=== PATIENT | female | born 1950 | race Caucasian/White ===

== ENCOUNTER 2018-03-10 05:36 | Inpatient (IN) | payer OTHER ==
[2018-02-24 11:41] LABS: URINE BILIRUBIN NEGATIVE (Negative); URINE BLOOD TRACE (Negative); URINE CLARITY CLEAR; URINE COLOR YELLOW; URINE GLUCOSE-RANDOM* NEGATIVE (Negative); URINE KETONES NEGATIVE (Negative); URINE NITRITE-REFLEX NEGATIVE (Negative); URINE PROTEIN (DIPSTICK) NEGATIVE (Negative); URINE UROBILINOGEN 0.2 E.U./dl (0.2-1.0)
[2018-02-24 11:42] LABS: HEMATOCRIT 44.1 % (37.0-47.0); HEMOGLOBIN 14.8 gm/dL (12.0-15.0); MCH 30.5 pg (26.0-34.0); MCHC 33.5 g/dL (28.0-37.0); RBC 4.85 mil/uL (4.20-5.00); RDW 12.9 % (10.5-14.5); WBC 5.4 thou/uL (4.0-11.0)
[2018-02-24 11:43] LABS: URINE LEUKOCYTES-REFLEX 1+ (Negative)
[2018-02-24 12:04] LABS: PROTIME 10.2 Seconds (9.3-11.4)
[2018-02-24 12:05] LABS: SQUAMOUS >10 Many /LPF (0-3)
[2018-02-24 12:06] LABS: CASTS None Seen /LPF (None Seen); CRYSTALS None Seen /LPF (None Seen); URINE RBC 0-2 Rare /HPF (0-2); URINE WBC-REFLEX 6-15 Few /HPF (0-5)
[2018-02-24 12:07] LABS: BACTERIA-REFLEX 1-9 Few /HPF (None Seen)
[2018-02-24 12:09] LABS: ALBUMIN 4.2 g/dL (3.4-5.0); CALCIUM 10.1 mg/dL (8.5-10.1); CREATININE 0.7 mg/dL (0.6-1.0); POTASSIUM 4.3 mmol/L (3.5-5.1)
[~2018-03-10] VITALS: Ht 167.6 cm; Wt 68.0 kg
--- NOTE | ~2018-03-10 | EKG ---
[address] [place] [address] ELECTROCARDIOGRAM REPORT Name: GLEN MITCHELL Room #: [facility]#: [id number] Admission: Attend Phys: Delbert Herman MD Discharge: Date of : 52 Report #: [id number] THIS REPORT FOR: //name// [facility] Test Date: 2018-02-24 Test Time: 11:38:08 Pat Name: GLEN MITCHELL Department: Room: Gender: F Liquefier: David DIAS : 1950 Requested By: Delbert Herman Order Number: [id number] MD: Prem Johnston Measurements Intervals [place] Rate: 67 P: 66 [place]: 155 QRS: 1 QRSD: 101 T: 46 QT: 395 QTc: 417 Interpretive Statements Sinus rhythm Multiple ventricular premature complexes No previous ECG available for comparison Electronically Signed On 02-25-2018 8:49:27 CDT by Prem Johnston [email or web address] <ELECTRONICALLY SIGNED> By: Prem Johnston MD, [facility] 02/25/18 0849 1138 1138 Prem Johnston MD, FACC /EPI
--- NOTE | ~2018-03-10 | O ---
[facility] [place] [address] OPERATIVE REPORT Name: DAYNEDorisGLEN Room #: 416-P [facility] M.R.#: [id number] Admission: 03/10/18 Attend Phys: Delbert Herman MD Discharge: Date of : 52 Report #: [id number] THIS REPORT FOR: //name// CC: Jameel Herman DATE OF SERVICE: 03/10/2018 PREOPERATIVE DIAGNOSIS: Painful right total knee arthroplasty, possible loosening. POSTOPERATIVE DIAGNOSES: 1. Painful. right total knee arthroplasty. 2. Loosening of the femoral and tibial prostheses, right total knee arthroplasty. PROCEDURE: Revision right total knee arthroplasty of all three components. SURGEON: Delbert Herman MD. AREA DIRECTOR OF HOME HEALTH SALES: Carolina Juan PA-C. INDICATIONS FOR ASSISTANCE: Throughout the case, extensive retraction and manipulation of the knee was required. This was afforded to me by my enrichment assistant ANESTHESIA: LMA with an adductor canal block. IMPLANTS: Basilio and Nephew size 4 revision Legion Oxinium femoral component with a 4 mm offset superintendent pier and a 120 mm intramedullary stem for the femur. The tibia was a size 3 with a revision tibial plate with a 4 mm offset superintendent pier and 160 stem and a size 32 patella. TOURNIQUET TIME: 90 minutes. ESTIMATED BLOOD LOSS: 50 mL. COMPLICATIONS: None. SPECIMENS: Intraoperative culture as well as frozen section were sent. Frozen section came back as 0 white cells per high-powered field. CONDITION UPON LEAVING THE OPERATING ROOM: Stable. INDICATION FOR PROCEDURE: The patient is a 67-year-old female who is about a year and a half out from a right total knee arthroplasty. She has had continued moderate to severe pain in the knee and had a workup for infection, which was [facility] [address] [place] [address] OPERATIVE REPORT Name: GLEN MITCHELL Room #: 416-P [facility] ..#: [id number] Admission: 03/10/18 Attend Phys: Delbert Herman MD Discharge: Date of : 52 Report #: [id number]. She had a bone scan showing to have increased uptake along the tibial and femoral component. It was felt that her components were loose from the bone. After discussion with her and her , she elected for revision total knee arthroplasty. DESCRIPTION OF PROCEDURE: Risks, benefits, alternatives, complications were discussed in detail with the patient including but not limited to risk of anesthesia, risk of damage to nerves, arteries, blood vessels, risk for infection, bleeding, risk for continued knee pain and need for reoperation. Informed consent was obtained from the patient. Right knee was appropriately marked in the preoperative holding area. IV Ancef was given for preoperative antibiotics. Adductor canal block was placed by Anesthesia. She was brought to the operating room and placed in supine position on operating room table. LMA anesthesia was induced without complication. Tourniquet was placed on the right thigh. Right lower extremity was prepped and draped in normal sterile fashion. Timeout was performed properly identifying the patient and procedure as well as the instrumentation and implants. All in the operating room were in agreement. Right lower extremity was exsanguinated, tourniquet was inflated. Tourniquet time was 90 minutes. The previous scar was used, and this was opened with a 10 blade through the skin. Dissection was taken down the fascia, and deep flaps were developed medially and laterally. Fresh 10 blade was used to make a medial parapatellar arthrotomy, and cultures of the fluid were taken. This appeared to be normal appearing synovial fluid. Several samples of synovium were taken from the knee and sent to pathology for intraoperative frozen section, which came back as 0 white cells per high-powered field. The polyethylene liner was removed, and the medial and lateral gutters were reestablished. The femoral component was then undermined with a combination of flexible and rigid osteotomes. The femoral component was removed rather easily. All the cement stayed on the femoral component, with minimal cement on the bone suggesting that there was no mcgrath between the bone and the cement. Tibial component was then removed using combination of flexible and rigid osteotomes with retention of most of the cement on the tibial component, again suggesting minimal mcgrath between the bone and the cement. After this, the canals were sequentially reamed up to a size 13 on the tibia and a size 18 on the femur. A tibial cut was freshened up on the tibial side, and tibia was sized. The tibial trial component fit best with a 160 stem and a 4 mm offset superintendent pier. This was punched and left in place. The femur was then reamed and sized as a 4, with a 4 mm offset superintendent pier, and this was placed using 120 mm stem. After this, the trial femoral component was placed, and this was trialed with a sequential polyethylene up to a size 15, at which point I had good balance in flexion and extension both medially and laterally. Patella was then inspected, and the patellar component was slightly loose, and this was removed with an oscillating saw. A cleanup cut on the patella was made, and the size 32 patellar trial was placed. Knee was taken through range of motion, found to be stable, found to have good balance in flexion and extension both medially and laterally. Trial components were removed. Bony ends were thoroughly irrigated with normal [address] [address] OPERATIVE REPORT Name: GLEN MITCHELL Room #: 416-P [facility] M.R.#: [id number] Admission: 03/10/18 Attend Phys: Delbert Herman MD Discharge: Date of : 52 Report #: [id number] saline. The final implants were built on the back table and cemented in place using standard cementation techniques. While the cement cured, a periarticular injection consisting of morphine, ropivacaine, epinephrine and Toradol was placed around the knee joint tissues. After the cement cured, the tourniquet was deflated. Hemostasis was obtained with Bovie cautery. The knee was thoroughly irrigated. A final size 15 polyethylene was placed. A gram of vancomycin was placed deep in the knee joint. Fascia was closed with 0 Vicryl, skin was closed with 2-0 Vicryl OUMOU dressing was applied. The patient tolerated this procedure well and went to recovery room under care of Anesthesia postoperatively. <ELECTRONICALLY SIGNED> By: Delbert Herman MD 03/11/18 1232 1610 1707 Delbert Herman MD /nt
[~2018-03-10 05:36] MED LIST: MOBIC7.5 MG PO
[2018-03-10 09:45] VITALS: BP 129/75
[2018-03-10 20:00] VITALS: BP 115/52
[2018-03-11 03:00] VITALS: BP 110/43
[2018-03-11 06:18] LABS: HEMATOCRIT 32.6 % (37.0-47.0); HEMOGLOBIN 11.1 gm/dL (12.0-15.0); MCH 31.5 pg (26.0-34.0); MCHC 34.1 g/dL (28.0-37.0); MCV 92.3 fL (80.0-100.0); RBC 3.53 mil/uL (4.20-5.00); RDW 13.1 % (10.5-14.5); WBC 7.6 thou/uL (4.0-11.0)
[2018-03-11 08:26] VITALS: BP 102/44
[2018-03-11 15:18] VITALS: BP 95/42
[2018-03-11 20:29] VITALS: BP 107/46
[2018-03-12 04:08] VITALS: BP 91/42
[2018-03-12 05:53] LABS: HEMATOCRIT 30.5 % (37.0-47.0); HEMOGLOBIN 10.2 gm/dL (12.0-15.0); MCHC 33.5 g/dL (28.0-37.0); MCV 92.6 fL (80.0-100.0); RBC 3.29 mil/uL (4.20-5.00); RDW 13.3 % (10.5-14.5); WBC 5.8 thou/uL (4.0-11.0)
[2018-03-12 08:06] VITALS: BP 103/51
[2018-03-12 13:52] VITALS: BP 103/51
== END 2018-03-12 14:52 | disposition home or self-care (01) | DRG 468 ==
LOC: 4N 05:36 → TBA 05:36 → PRE 05:42 → 4N 15:15 → ENTRNSPT 03-12 14:37 → EDTRNSPTSTS 03-12 14:39 → 4N 03-12 14:52
PROVIDERS: Orthopaedic Surgery
PROC: 0SRC0J9 Replacement of Right Knee Joint with Synthetic Substitute, Cemented, Open Approach (ICD-10-PCS; principal; 2018-03-10)
PROC: 0SPC0JZ Removal of Synthetic Substitute from Right Knee Joint, Open Approach (ICD-10-PCS; principal; 2018-03-10)
DX: T84.032A Mechanical loosening of internal right knee prosthetic joint, initial encounter (principal); T84.84XA Pain due to internal orthopedic prosthetic devices, implants and grafts, initial encounter; Y83.8 Other surgical procedures as the cause of abnormal reaction of the patient, or of later complication, without mention of misadventure at the time of the procedure; Y92.89 Other specified places as the place of occurrence of the external cause; Z87.891 Personal history of nicotine dependence; Z85.828 Personal history of other malignant neoplasm of skin; Z90.49 Acquired absence of other specified parts of digestive tract; Z98.42 Cataract extraction status, left eye; Z98.41 Cataract extraction status, right eye; Z90.710 Acquired absence of both cervix and uterus
CPT/HCPCS: 10790; 50010; 50101; 50415; 50954; 51130; 51225; 51412; 51771; 53000; 53078; 54118; 55389; 56527; 56528; 57095; 62110; 62900; 70005